=== PATIENT | female | born 1985 | race African-American/Black ===

== ENCOUNTER 2024-03-19 21:30 | Emergency (ER) | payer OTHER, SELFPAY ==
--- NOTE | ~2024-03-19 | XR_ITS ---
Portable chest x-ray Comparison: 11/10/2017 Clinical History: PICC line placement Findings: Left-sided PICC line in place, tip in the SVC. There is bibasilar scarring or atelectasis. Lungs are otherwise clear. No pneumothorax. Cardiomediastinal silhouette is stable. Bones and soft tissues are unremarkable. Impression: Left-sided PICC line in place, as above. Bibasilar linear scarring or atelectasis. Reviewed, dictated and finalized at location M. Impression: Left-sided PICC line in place, as above. Bibasilar linear scarring or atelectasis.
[2024-03-19 21:32] VITALS: BP 121/87; PULSE 88; RESP 18; TEMP 37; O2SAT 98
[2024-03-20 01:55] VITALS: BP 113/81; PULSE 95; RESP 17; TEMP 36.8; O2SAT 100
--- NOTE | 2024-03-20 02:51 | ED.GENADULT ---
HPI - General Adult General Chief complaint: Unspecified Stated complaint: supposed to have antibiotics due to pancreaitis Time Seen by Provider: 03/19/24 23:53 Source: patient Mode of arrival: ambulatory Limitations: no limitations History of Present Illness HPI narrative: Patient is a 38-year-old female who presents to the ER looking for antibiotics, pain medication, and placement at a new [facility]. Patient was discharged from [facility] on March 19, 2024. 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 Patient's discharge paperwork indicates that she had GI endoscopy and had a stent placed. She was discharged from [place] and to a correction facility, [facility]. Patient reports she does not want to go back to [facility]. She denies any acute symptoms or changes from her status prior to discharge from [place]. Related Data Allergies Allergy/AdvReac Type Severity Reaction Status Date / Time No Known Allergies Allergy Verified 03/20/24 01:56 Review of Systems Review of Systems: All systems reviewed & are unremarkable except as noted in HPI and below Exam Narrative: GENERAL: Well appearing, poorly nourished, non-toxic, in no acute distress. HEAD: Normocephalic, atraumatic. NECK: Supple. No adenopathy, no masses. RESPIRATORY: Airway patent, respirations nonlabored. Clear to auscultation bilaterally, no rales, rhonchi, wheezing. CARDIOVASCULAR: Regular rate and rhythm without murmurs, rubs, or gallops. Peripheral pulses 2+ and equal bilaterally. ABDOMINAL: Soft, tender upper abdomen with palpation, mildly distended. Normoactive BS. MUSCULOSKELETAL: Moves all extremities. Strength/ROM intact without gross deformities. SKIN: Warm, dry, normal color. No rashes. Pt has a PICC line in place in her L upper arm. NEURO: A&O X3. Speech clear. Cranial nerves II-XII grossly intact. No ataxic movements. Course Vital Signs Vital signs: Vital Signs Temperature 37.0 C 03/19/24 21:32 Pulse Rate 88 03/19/24 21:32 Respiratory Rate 18 03/19/24 21:32 Blood Pressure 121/87 03/19/24 21:32 Pulse Oximetry 98 03/19/24 21:32 Oxygen Delivery Room Air 03/19/24 21:32 Temperature 36.8 C 03/20/24 01:55 Pulse Rate 95 03/20/24 01:55 Respiratory Rate 17 03/20/24 01:55 Blood Pressure 113/81 03/20/24 01:55 Pulse Oximetry 100 03/20/24 01:55 Oxygen Delivery Room Air 03/19/24 21:32 Medical Decision Making MDM Narrative Medical decision making narrative: Patient is a 38-year-old female who presents to the ER looking for antibiotics, pain medication, and placement at a new [facility]. Patient was discharged from [facility] on March 19, 2024. 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 Patient's discharge paperwork indicates that she had GI endoscopy and had a stent placed. She was discharged from [place] and to a correction facility, [facility]. Patient reports she does not want to go back to [facility]. She denies any acute symptoms or changes from her status prior to discharge from [place]. The patient's examination is unremarkable besides her abdominal tenderness, which is chronic. Her discharge orders for the correction facility from [place] indicate patient should be seen receiving Ceftriaxone daily, Flagyl BID, Creon 3 times a day, and chronic pain medications. Explained to patient that her routine medications will be ordered for her in the ER, as she reports she was unable to get them today at the correction facility. She reports they told her the medications would be available tomorrow. Patient was also told she would be given pain medication to treat her pain here in the ER. No further workup will be done at this time, as patient's specialists discharged her from [place] less than 24 hours ago and no changes will be made to her treatment plan by
--- NOTE | 2024-03-20 02:54 | PC.NURSE ---
LADARIUS palmay to use PICC line that was placed at [facility].
[2024-03-20] MEDS: MORPHINE SULFATE (*CRX) 4 MG/ML INJ IV PUSH (02:59)
[2024-03-20] MEDS: PANTOPRAZOLE 40 MG TABLET PO (02:59)
[2024-03-20] MEDS: metroNIDAZOLE 500 MG TABLET PO (03:00)
[2024-03-20] MEDS: GABAPENTIN 300 MG CAPSULE PO (03:10)
[2024-03-20 03:25] VITALS: TEMP 36.8
[2024-03-20 04:01] VITALS: BP 104/68; PULSE 89; RESP 17; O2SAT 100
[2024-03-20] MEDS: HYDROmorphone HCL INJ (*CRX) 1 MG/ML SYR IV PUSH (04:16)
== END 2024-03-20 04:20 | disposition home or self-care (01) ==
PROVIDERS: Emergency Provider Registered Nurse
DX: Z76.89 Persons encountering health services in other specified circumstances (principal); K86.3 Pseudocyst of pancreas
CPT/HCPCS: 96374; 96375; 99284; A9270; J1170; J2270